=== PATIENT | female | born 1965 | race African-American/Black ===

== ENCOUNTER 2025-01-18 23:07 | Emergency (ER) | payer OTHER ==
[2025-01-19] MEDS ORDERED: Amoxicillin/Potassium Clav 875 MG TAB ONE (00:18)
== END 2025-01-19 00:28 | disposition home or self-care (01) ==
LOC: CSHERS 23:07
DX: K04.7 Periapical abscess without sinus (principal); I10 Essential (primary) hypertension
CPT/HCPCS: 99283

== ENCOUNTER 2025-06-11 17:31 | Emergency (ER) | payer OTHER ==
[2025-06-11 18:37] LABS: Glucose, Urine (Dipstick) Normal (Negative); Leukocyte Negative (Negative); Protein, Urine (Dipstick) 30 mg/dl (Neg-Trace); Specific Gravity, Urine 1.010 (1.005-1.030)
[2025-06-11 19:11] LABS: Bacteria/HPF Rare-Few HPF (None Seen); CAUTI Indications for Culture Pelvic or flank pain; RBC/HPF 0-3 HPF (0-3); WBC/HPF None Seen HPF (0-3)
[2025-06-11 19:13] LABS: Urine Culture Reflex No No
[2025-06-13 01:21] LABS: Chlamydia by PCR, Vaginal Swab Not Detected (NotDetected); GC by PCR, Vaginal Swab Not Detected (NotDetected)
== END 2025-06-11 19:47 | disposition home or self-care (01) ==
LOC: CSHERS 17:31
DX: L25.9 Unspecified contact dermatitis, unspecified cause (principal); N76.0 Acute vaginitis; B96.89 Other specified bacterial agents as the cause of diseases classified elsewhere; I10 Essential (primary) hypertension
CPT/HCPCS: 81001; 87480; 87491; 87510; 87591; 87660; 99283